=== PATIENT | male | born 1990 | race Asian ===

== ENCOUNTER 2018-09-15 23:13 | Emergency (ER) | payer OTHER ==
[2018-09-15] MEDS ORDERED: NS 0.9% 1000 ML** 1,000 ML IV ONE ×2 (23:31→23:58)
[2018-09-15] MEDS ORDERED: Ketorolac INJ* 30 MG/ML 1 ML VIAL IV PUSH ONE (23:31)
[2018-09-15] MEDS ORDERED: Morphine VIAL* 4 MG/ML VIAL (1 ml vial) IV ONE (23:32)
[2018-09-15] MEDS ORDERED: Metoclopramide IV* 5 MG/ML 2 ML VIAL IV SLOW PU ONE (23:32)
--- NOTE | 2018-09-15 23:33 | ED ---
Abdominal Pain/Male - HPI Summary HPI Summary: This patient is a 28 year old M brought in by ambulance to [facility] with a chief complaint of RLQ abd pain that began at 2100 today. The patient rates the pain 4 /10 in severity. Symptoms aggravated by nothing. Symptoms alleviated by nothing. Patient denies back pain, nausea, and testicular pain. Patient reports having similar symptoms previously. - History of Current Complaint Chief Complaint: EDAbdPain Stated Complaint: ABD PAIN Time Seen by Provider: 09/15/18 23:15 Hx Obtained From: Patient Onset/Duration: Sudden Onset, Lasting Hours, Still Present Timing: Constant Severity Initially: Moderate Severity Currently: Moderate Pain Intensity: 4 Pain Scale Used: 0-10 Numeric Location: Discrete At: RLQ Radiates: No Aggravating Factor(s): Nothing Alleviating Factor(s): Nothing Associated Signs And Symptoms: Positive: Other - Negative back pain, nausea, and testicular pain - Allergies/Home Medications Allergies/Adverse Reactions: Allergies Allergy/AdvReac Type Severity Reaction Status Date / Time No Known Allergies Allergy Verified 08/05/15 01:09 PMH/Surg Hx/FS Hx/Imm Hx Previously Healthy: Yes History: Denies: Hx Kidney Stones Opthamlomology History: Denies: Hx Legally Blind EENT History: Denies: Hx Deafness Infectious Disease History: No Infectious Disease History: Denies: Traveled Outside the [place] in Last 30 Days - Family History Known Family History: Negative: Cardiac Disease, Diabetes - Social History Occupation: Student Lives: Alone Alcohol Use: None Hx Substance Use: No Substance Use Type: Reports: None Hx Tobacco Use: No Smoking Status (MU): Never Smoked Tobacco Review of Systems Positive: Abdominal Pain. Negative: Nausea Positive: other - Negative testicular pain Positive: Other - Negative back pain All Other Systems Reviewed And Are Negative: Yes Physical Exam - Summary Physical Exam Summary: VITAL SIGNS: Reviewed. GENERAL: Patient is a well-developed and nourished male who is lying comfortable in the stretcher. Patient is not in any acute respiratory distress. HEAD AND FACE: No signs of trauma. No ecchymosis, hematomas or skull depressions. No sinus tenderness. EYES: PERRLA, EOMI x 2, No injected conjunctiva, no nystagmus. EARS: Hearing grossly intact. Ear canals and tympanic membranes are within normal limits. MOUTH: Oropharynx within normal limits. NECK: Supple, trachea is midline, no adenopathy, no JVD, no carotid bruit, no c- spine tenderness, neck with full ROM. CHEST: Symmetric, no tenderness at palpation LUNGS: Clear to auscultation bilaterally. No wheezing or crackles. CVS: Regular rate and rhythm, S1 and S2 present, no murmurs or gallops appreciated. ABDOMEN: Soft, RLQ tenderness. No signs of distention. No rebound no guarding, and no masses palpated. Bowel sounds are normal. EXTREMITIES: FROM in all major joints, no edema, no cyanosis or clubbing. NEURO: Alert and oriented x 3. No acute neurological deficits. Speech is normal and follows commands. SKIN: Dry and warm Triage Information Reviewed: Yes Vital Signs On Initial Exam: Initial Vitals Temp Pulse Resp BP Pulse Ox 98.0 F 69 18 141/97 99 09/15/18 23:15 09/15/18 23:15 09/15/18 23:15 09/15/18 23:15 09/15/18 23:15 Vital Signs Reviewed: Yes Diagnostics - Vital Signs Vital Signs Temp Pulse Resp BP Pulse Ox 09/15/18 23:15 98.0 F 69 18 141/97 99 - Laboratory Result Diagrams: 09/15/18 23:43 09/15/18 23:43 Lab Statement: Any lab studies that have been ordered have been reviewed, and results considered in the medical decision making process. - CT Abdomen and pelvis CT CT Interpretation Completed By: Radiologist Summary of CT Findings: Abdomen and pelvis CT reveals, per radiologist, mild to moderately obstructing 9 mm calculus mid third right ureter. ED physician has reviewed this radiology report. Abdominal Pain Fem Course/Dx - Course Course Of Treatment: This patient is a 28 year old M brought in by ambulance to [facility] with a chief complaint of RLQ abd pain that began at 2100 today. Physical Exam Findings: RLQ tenderness. Abdomen and pelvis CT reveals, per radiologist, mild to moderately obstructing 9 mm calculus mid third right ureter. Bloodwork and UA obtained. In the ED course the patient was given Toradol, metoclopramide , morphine, fluids, and tamsulosin. Patient will be discharged with prescription for Ibuprofen, Percocet, and Flomax and with follow up from PCP and urology. The patient is agreeable with this plan. - Diagnoses Provider Diagnoses: Right ureteral stone, Renal colic Discharge - Sign-Out/Discharge Documenting (check all that apply): Patient Departure - Discharge home - Discharge Plan Condition: Stable Disposition: HOME Prescriptions: Ibuprofen TAB* [Motrin TAB* 800 MG] 800 mg PO Q6H PRN #30 tab PRN Reason: Pain oxyCODONE/Acetamin 5/325 MG* [Percocet 5/325 TAB*] 1 tab PO Q6H PRN #14 tab MDD 4 PRN Reason: Pain Tamsulosin CAP* [Flomax CAP*] 0.4 mg PO DAILY #7 cap Patient Education Materials: Renal Colic (ED), Ureteral Stones (ED) Referrals: [facility] [[facility]] - 2 Days Farhan Purcell MD [Medical Doctor] - 09/17/18 Additional Instructions: RETURN TO THE EMERGENCY DEPARTMENT FOR NEW OR WORSENING SYMPTOMS - Attestation Statements Document Initiated by Scribe: Yes Documenting Scribe: Sharri Solo Provider For Whom Scribe is Documenting (Include Credential): Dr. Domo Loja MD Scribe Attestation: I, Sharri Solo, scribed for Dr. Domo Loja MD on 09/16/18 at 0120. Status of Scribe Document: Ready
[2018-09-15 23:49] LABS: ABS Basophils 0 10^3/ul (0-0.2); ABS Eosinophils 0.1 10^3/ul (0-0.6); ABS Lymphocytes 2.1 10^3/ul (1.0-4.8); ABS Monocytes 0.4 10^3/ul (0-0.8); ABS Neutrophils 4.3 10^3/ul (1.5-7.7); ABS Nucleated RBC 0 10^3/ul; Eosinophil % 1.4 %; Hematocrit 40 % (42-52); Hemoglobin 13.6 g/dl (14.0-18.0); Lymphocyte % 30.1 %; Mean Corpuscular HGB Conc 35 g/dl (31-36); Mean Corpuscular Hemoglobin 32 pg (27-31); Mean Corpuscular Volume 93 fL (80-94); Mean Platelet Volume 7.6 fL (7.4-10.4); Nucleated Red Blood Cells % 0.1; Platelet Count 232 10^3/ul (150-450); Red Blood Count 4.27 10^6/ul (4.00-5.40); Red Cell Distribution Width 13 % (10.5-15)
[2018-09-15] MEDS ORDERED: Tamsulosin CAP* 0.4 MG PO ONE (23:57)
[2018-09-16 00:06] LABS: ALT 15 U/L (7-52); AST 15 U/L (13-39); Albumin 4.4 g/dL (3.2-5.2); Albumin/Globulin Ratio 1.8 (1-3); Alkaline Phosphatase 55 U/L (34-104); Amylase 49 U/L (29-103); Anion Gap 8 mmol/L (2-11); BUN/Creatinine Ratio 20.7 (8-20); Blood Urea Nitrogen 19 mg/dL (6-24); C Reactive Protein < 1.00 mg/L (<8.01); CO2 Carbon Dioxide 26 mmol/L (22-32); Calcium 9.3 mg/dL (8.6-10.3); Chloride 105 mmol/L (101-111); EGFR African American 119.4 (>60); EGFR Non-African American 98.7 (>60); Globulin 2.5 g/dL (2-4); Glucose 103 mg/dL (70-100); Potassium 3.7 mmol/L (3.5-5.0); Sodium 139 mmol/L (135-145); Total Protein 6.9 g/dL (6.4-8.9)
[2018-09-16 00:56] LABS: Urine Appearance Cloudy; Urine Bacteria Absent (Absent); Urine Bilirubin Negative (Negative); Urine Blood 2+ (Negative); Urine Color Yellow; Urine Glucose Negative (Negative); Urine Ketones Negative (Negative); Urine Nitrite Negative (Negative); Urine Protein 1+(30 mg/dL) (Negative); Urine Red Blood Cell 3+(>10/hpf) (Absent); Urine Specific Gravity 1.026 (1.010-1.030); Urine Urobilinogen Negative (Negative); Urine White Blood Cell Trace(0-5/hpf) (Absent)
[2018-09-16 01:48] VITALS: BP 115/67
== END 2018-09-16 01:46 | disposition home or self-care (01) ==
LOC: ED 23:13
DX: N23 Unspecified renal colic (principal); N20.9 Urinary calculus, unspecified; R10.31 Right lower quadrant pain; N50.812 Left testicular pain; N50.811 Right testicular pain
CPT/HCPCS: 36415; 74176; 80053; 81003; 81015; 82150; 83690; 83735; 85025; 86140; 87086; 99282; J1885; J2270; J2765

== ENCOUNTER 2019-02-23 12:12 | Emergency (ER) | payer OTHER ==
[2019-02-23] MEDS ORDERED: NS 0.9% 1000 ML** 1,000 ML IV ONE (12:39)
--- NOTE | 2019-02-23 12:39 | ED ---
GI/ HPI - HPI Summary HPI Summary: This patient is a 29 year old male presenting to [facility] with a chief complaint of abdominal pain. The patient reports nausea and vomiting. He states with a gradual onset this morning and has improved since vomiting 3 times. The patient reports pain in the suprapubic area. He states a Hx of kidney stones. Patient denies fever, dysuria, discharge, hematuria and testicular pain. He rates his pain 1/10 in severity. Pt. notes he was seen in ER in September and dx with a 9mm kidney stone. Pt. states he never saw urology and believes he passed stone. - History of Current Complaint Chief Complaint: EDAbdPain Time Seen by Provider: 02/23/19 12:32 Stated Complaint: LOWER ABD PAIN PER EMS Hx Obtained From: Patient Pain Intensity: 2 - Allergy/Home Medications Allergies/Adverse Reactions: Allergies Allergy/AdvReac Type Severity Reaction Status Date / Time No Known Allergies Allergy Verified 02/23/19 12:23 PMH/Surg Hx/FS Hx/Imm Hx Previously Healthy: Yes Endocrine/Hematology History: Denies: Hx Diabetes Cardiovascular History: Denies: Hx Coronary Artery Disease History: Reports: Hx Kidney Stones Sensory History: Denies: Hx Legally Blind, Hx Deafness Opthamlomology History: Denies: Hx Legally Blind - Surgical History Surgical History: None Infectious Disease History: No Infectious Disease History: Denies: Traveled Outside the [place] in Last 30 Days - Family History Known Family History: Positive: Non-Contributory Negative: Cardiac Disease, Diabetes - Social History Occupation: Employed Full-time Lives: With Family Alcohol Use: None Hx Substance Use: No Substance Use Type: Reports: None Hx Tobacco Use: No Smoking Status (MU): Never Smoked Tobacco Review of Systems Negative: Fever Cardiovascular: Negative Respiratory: Negative Positive: Abdominal Pain, Vomiting, Nausea Negative: dysuria, discharge, hematuria All Other Systems Reviewed And Are Negative: Yes Physical Exam Triage Information Reviewed: Yes Vital Signs On Initial Exam: Initial Vitals Temp Pulse Resp BP Pulse Ox 98.8 F 54 16 124/82 99 02/23/19 12:19 02/23/19 12:19 02/23/19 12:19 02/23/19 12:19 02/23/19 12:19 Vital Signs Reviewed: Yes Appearance: Positive: Well-Appearing - Patient lying in bed comfortably in no acute distress. Significant other present. Skin: Positive: Warm, Dry Head/Face: Positive: Normal Head/Face Inspection Eyes: Positive: Normal Neck: Positive: Supple Respiratory/Lung Sounds: Positive: Clear to Auscultation Cardiovascular: Positive: Normal Abdomen Description: Positive: Other: - Soft, mild tenderness over the suprapubic region.. Negative: CVA Tenderness (R), CVA Tenderness (L) Musculoskeletal: Positive: Normal Neurological: Positive: Normal, CN Intact II-III Psychiatric: Positive: Affect/Mood Appropriate Diagnostics - Vital Signs Vital Signs Temp Pulse Resp BP Pulse Ox 02/23/19 12:19 98.8 F 54 16 124/82 99 - Laboratory Result Diagrams: 02/23/19 12:45 02/23/19 12:45 Lab Statement: Any lab studies that have been ordered have been reviewed, and results considered in the medical decision making process. - Radiology Abdomen XR Radiology Interpretation Completed By: Radiologist Summary of Radiographic Findings: 0.9 cm maximum dimension far distal right ureteral stone with approximate 6 cm distal propagatio ncompared with the [facility]2018 CT. Correlate with procedural history to confirm abscense of interval removal of the previous stone. ED Provider has reviewed this report. - Ultrasound No standard instances Ultrasound Interpretation Completed By: Radiologist Summary of Ultrasound Findings: Renal U/S: Negative for RIGHT hydronephrosis. ED Provider has reviewed this report. GIGU Course/Dx - Course Course Of Treatment: Pt. presenting with N/V and suprapubic pain. 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 Pt. declines pain medication or vomiting medication in ED. Started on IV fluids. Labs are unremarkable. U/A shows RBCs without signs of infection. Abd. xray per radiology: IMPRESSION: #. 0.9 cm maximum dimension far distal RIGHT ureteral stone with approximate 6 cm distal. propagation compared with the September 15, 2018 CT. Correlate with procedural history to. confirm absence of interval removal of the previous stone. Renal u /s negative for acute findings per radiology. Pt. is currently pain free and is tolerating POs without vomiting. Results discussed. Will dc pt. home to f.u with urology on Monday. Pt. declines rx for pain medication. Advised tylenol or motrin as directed. Rx for zofran and flomax. To increase fluids. To return to ER for uncontrolled pain, vomiting, fever, or if concerned. Pt. and family understand and agree with plan. - Diagnoses Differential Diagnoses - Male: Renal Colic, Urinary Tract Infection, Vomiting Provider Diagnoses: Urolithiasis Discharge - Sign-Out/Discharge Documenting (check all that apply): Patient Departure Patient Received Moderate/Deep Sedation with Procedure: No - Discharge Plan Condition: Improved Disposition: HOME Prescriptions: Ondansetron TAB* [Zofran 4 MG Tab*] 4 mg PO Q6H PRN #12 tab PRN Reason: Nausea Tamsulosin CAP* [Flomax CAP*] 0.4 mg PO DAILY #5 cap Patient Education Materials: Kidney Stones (ED) Referrals: Farhan Purcell MD [Medical Doctor] - Additional Instructions: Call Dr. Purcell's office Monday to schedule a close follow up appointment Medication as directed Tylenol or Motrin for pain as directed Return to ER for uncontrolled pain, vomiting, fever, or if concern - Billing Disposition and Condition Condition: IMPROVED Disposition: Home - Attestation Statements Document Initiated by Christina: Yes Documenting Scribe: Zheng Ma Provider For Whom Christina is Documenting (Include Credential): CACHORRO Mcintyre Scribe Attestation: IZheng scribed for CACHORRO Mcintyre on 02/24/19 at 0732. Scribe Documentation Reviewed: Yes Provider Attestation: The documentation as recorded by the Zheng lozada accurately reflects the service I personally performed and the decisions made by Alex brennan PAC Status of Scribe Document: Viewed
[2019-02-23 12:57] LABS: ABS Lymphocytes 1.1 10^3/ul (1.0-4.8); ABS Monocytes 0.4 10^3/ul (0-0.8); ABS Neutrophils 5.2 10^3/ul (1.5-7.7); Eosinophil % 0.5 %; Hematocrit 40 % (42-52); Hemoglobin 13.5 g/dL (14.0-18.0); Lymphocyte % 16.7 %; Mean Corpuscular HGB Conc 34 g/dL (31-36); Mean Corpuscular Hemoglobin 32 pg (27-31); Mean Corpuscular Volume 93 fL (80-94); Mean Platelet Volume 7.9 fL (7.4-10.4); Platelet Count 234 10^3/uL (150-450); Red Blood Count 4.27 10^6 /uL (4.18-5.48); Red Cell Distribution Width 13 % (10-15); White Blood Count 6.8 10^3/uL (3.5-10.8)
[2019-02-23 13:08] LABS: ALT 52 U/L (7-52); AST 28 U/L (13-39); Albumin 4.3 g/dL (3.2-5.2); Albumin/Globulin Ratio 1.4 (1-3); Alkaline Phosphatase 63 U/L (34-104); Anion Gap 7 mmol/L (2-11); BUN/Creatinine Ratio 19.3 (8-20); Blood Urea Nitrogen 16 mg/dL (6-24); C Reactive Protein < 1.00 mg/L (<8.01); CO2 Carbon Dioxide 24 mmol/L (22-32); Calcium 9.4 mg/dL (8.6-10.3); Chloride 105 mmol/L (101-111); EGFR African American 133.5 (>60); EGFR Non-African American 110.3 (>60); Glucose 112 mg/dL (70-100); Potassium 4.5 mmol/L (3.5-5.0); Sodium 136 mmol/L (135-145); Total Protein 7.3 g/dL (6.4-8.9)
[2019-02-23 14:35] LABS: Urine Appearance Clear; Urine Bacteria Absent (Absent); Urine Bilirubin Negative (Negative); Urine Blood 1+ (Negative); Urine Color Yellow; Urine Glucose Negative (Negative); Urine Ketones Negative (Negative); Urine Nitrite Negative (Negative); Urine Protein 2+(100 mg/dL) (Negative); Urine Red Blood Cell 2+(6-10/hpf) (Absent); Urine Specific Gravity 1.014 (1.010-1.030); Urine Squamous Epithelial Cell Present (Absent); Urine Urobilinogen Negative (Negative); Urine White Blood Cell Trace(0-5/hpf) (Absent)
[2019-02-23 15:30] VITALS: BP 132/68
== END 2019-02-23 15:29 | disposition home or self-care (01) ==
LOC: ED 12:12
DX: N20.1 Calculus of ureter (principal); Z87.442 Personal history of urinary calculi; R11.2 Nausea with vomiting, unspecified
CPT/HCPCS: 36415; 74018; 76775; 80053; 81003; 81015; 85025; 86140; 87086; 96360; 99284

== ENCOUNTER 2019-03-18 07:04 | Day surgery (SDC) | payer OTHER ==
--- NOTE | 2019-03-15 06:37 | HP ---
CC: [facility] * ADMITTING HISTORY AND PHYSICAL: DATE OF ADMISSION: 03/18/19 ADMITTING DIAGNOSIS: Calculus, right ureter. PLANNED PROCEDURE: Right ureteroscopy, possible laser and stent insertion. SURGEON: Dr. Purcell. 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 He went to the emergency room and had a CT scan, which had shown a 9 mm calculus in the right ureter and had been instructed to call for urology followup, but never did that. He states that he was relatively pain-free up until recently, when he had another episode of pain and was noted to have the same 9 mm calculus now present in the distal right ureter. He underwent a followup ultrasound in my office and continues to have a persistent almost 1 cm calculus in the distal right ureter and is now being brought in for right ureteroscopy, possible laser and stent insertion. PAST MEDICAL HISTORY: Unremarkable. PAST SURGICAL HISTORY: Negative. MEDICATIONS ON ADMISSION: None. ALLERGIES: No known drug allergies. FAMILY HISTORY: His father has kidney stones. SOCIAL HISTORY: Smoking History: He is a nonsmoker. REVIEW OF SYSTEMS: He denies any chest pain or shortness of breath. There is no history of diabetes mellitus or any other major systemic illness. PHYSICAL EXAMINATION GENERAL: Reveals a pleasant healthy-appearing young gentleman. VITAL SIGNS: Blood pressure is 100/70, pulse 56 per minute and regular, temperature 97.3, oxygen saturation 97% on room air. LUNGS: Clear bilaterally. CARDIOVASCULAR: Regular rate and rhythm. S1, S2. ABDOMEN: Soft with mild right flank tenderness. IMPRESSION: A 29-year-old gentleman who has had a calculus in the right ureter for almost 6 to 7 months and is now being brought in for right ureteroscopy, possible laser and stent insertion. I discussed the risks of the procedure and also the possible risk of ureteral stricture given the fact that the calculus has been in place for so long. He appears to understand and wishes to proceed as planned. [id number]/CPS #: [id number] MTDD
[~2019-03-18 07:04] MED LIST: Buffered Lidocaine 1% SYRIN* 1 ML/SYRINGE INTRADERM ONE; Famotidine IV* 10 MG/ML 2 ML (20 mg) IV ONE; Famotidine IV* 10 MG/ML 2 ML (20 mg) ONE; Lactated Ringers 1000 ML Bag* 1,000 ML IV SCH; cefTRIAXone(*) 2 GM ADDV.VIAL IVPB ONE
[2019-03-18] MEDS ORDERED: Iohexol 180 (CONTRAST) 10 ML SDV IV ONE (07:10)
[2019-03-18] MEDS ORDERED: Midazolam* 1 MG/ML 5 ML VIAL (5 MG) ONE (07:41)
[2019-03-18] MEDS ORDERED: Ketorolac INJ* 30 MG/ML 1 ML VIAL ONE (07:41)
[2019-03-18] MEDS ORDERED: fentaNYL* 50 MCG/ML 2 ML VIAL (100 MCG VIAL) ONE (07:41)
[2019-03-18] MEDS ORDERED: Dexamethasone IV* 4 MG/ML 1 ML (4 MG) ONE (07:41)
[2019-03-18] MEDS ORDERED: KETAMINE HCL* 50 MG/ML 10 ML VIAL ONE (07:41)
[2019-03-18] MEDS ORDERED: Propofol* 10 MG/ML 20 ML BTL ONE (07:41)
[2019-03-18] MEDS ORDERED: Ondansetron INJ* 2 MG/ML VIAL ONE (07:41)
[2019-03-18] MEDS ORDERED: Lidocaine 2% PF * 5 ML VIAL ONE (07:41)
[2019-03-18] MEDS ORDERED: fentaNYL* 50 MCG/ML 2 ML VIAL (100 MCG VIAL) IV PRN (08:21)
[2019-03-18] MEDS ORDERED: Ondansetron INJ* 2 MG/ML VIAL IV PRN (08:21)
[2019-03-18] MEDS ORDERED: oxyCODONE/Acetamin 5/325 MG* TAB PO PRN (08:21)
[2019-03-18] MEDS ORDERED: HYDROmorphone INJ1* 1 MG/ML SYRINGE IV PRN (08:21)
[2019-03-18] MEDS ORDERED: Naloxone* 0.4 MG/ML 1 ML VIAL IV PRN (08:21)
[2019-03-18 12:07] VITALS: BP 127/89
--- NOTE | 2019-03-18 12:10 | OP ---
CC: [facility] * DATE OF OPERATION: 03/18/19 - [facility] DATE OF : 89 SURGEON: Farhan Purcell MD ANESTHESIOLOGIST: Dr. Ramírez. ANESTHESIA: General. PRE-OP DIAGNOSES: 1. Calculus, right ureter. 2. Right hydronephrosis. POST-OP DIAGNOSES: 1. Calculus, right ureter. 2. Right hydronephrosis. OPERATIVE PROCEDURE: Cystoscopy, right retrograde pyelogram, right ureteroscopy , and tee lithotripsy of right ureteral calculus and removal of calculus fragments and right stent insertion. COMPLICATIONS: None. STENT USED: 7-Nicaraguan stent, right ureter. OPERATIVE FINDINGS: Approximately 10 mm calculus impacted in right distal ureter with surrounding edema and inflammation and mild right hydronephrosis. POSTOPERATIVE CONDITION: Stable. INDICATIONS: Breezy Donohue is a 29-year-old gentleman who has had a calculus in the right ureter for approximately 6 months. He is now being brought in for management of the same. DESCRIPTION OF PROCEDURE: After induction of general anesthesia, the patient was placed on the operating table in dorsal lithotomy position. Sequential compression devices were in place and functioning. Initial cystoscopy revealed normal appearing bladder. A guidewire was introduced into the right ureter. Retrograde pyelogram revealed fullness of the right collecting system. A 6- Nicaraguan semirigid ureteroscope was introduced and advanced under direct vision. A few centimeters above the ureterovesical junction, a fairly large approximately 10 to 11 mm sharp edged calculus was noted with surrounding edema and inflammation. Using a 550 micron holmium laser, this was successfully broken up into multiple pieces and all of the sizable fragments were removed. A 7-Nicaraguan stent was introduced and positioned under fluoroscopy with good proximal and distal positioning obtained. The patient tolerated the procedure satisfactorily and was transferred back to the recovery area in stable condition. [id number]/[facility] #: [id number] KIERRA
== END 2019-03-18 13:17 | disposition home or self-care (01) ==
LOC: OR 07:04
PROVIDERS: ATTEND Urology
DX: N13.2 Hydronephrosis with renal and ureteral calculous obstruction (principal)
CPT/HCPCS: 74420; 82365; 88300; C1876; J0696; J1100; J1885; J2250; J2405; J2704; J3010